=== PATIENT | female | born 1980 | race American Indian/Alaskan Native ===

== ENCOUNTER 2017-09-03 07:13 | Day surgery (SDC) | payer OTHER ==
[2016-07-06 08:39] VITALS: BMI 29.2
[2017-09-03] MEDS ORDERED: Propofol 10 mg/ml Inj (20 ML) ONE ×2 (11:44→12:29)
[2017-09-03] MEDS ORDERED: Midazolam 2 MG/2 ML VIAL ONE (11:44)
[2017-09-03] MEDS ORDERED: Rocuronium 10 mg/ml (5 ml) ONE (11:45)
[2017-09-03] MEDS ORDERED: Lidocaine/Epinephrine 1% 1:100000 10 ML IJ ONE (11:50)
[2017-09-03] MEDS ORDERED: Neostigmine Methylsulfate 3mg/3ml Syringe IV ONE (13:34)
[2017-09-03] MEDS: HYDROmorphone 0.5 mg/0.5 ml ISec IVP PRN ×2 (14:12→15:10)
--- NOTE | 2017-09-03 14:19 | PCM.SURG1 ---
Surgeon's Initial Post Op Note - Surgeon's Notes Surgeon: Anne Boyce MD [employer]: Kirill Lovell MD Type of Anesthesia: General Endo Pre-Operative Diagnosis: Abnormal uterine bleeding, Retrained intrauterine device, Multiparity desires permanent tubal sterilization Operative Findings: Retrained IUD removed under hyseroscopic guidance successfully, polypoid tissue noted within cavity, bilaterl ostial vislutize. Dx laparscopy with omental adhesions along supraumbilca and right lower quadnrant, adhesions carfeully lisyed x 1 hour howver procedure due to poor visulziaton and concenrs for underlying bowel or adhesions vs performing laparapatory. 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 Dr Giovana Lovell was surgical assistn and was present for entire case and essential in gainign etnry, retraction, epxoure holidn gcamera, helpign to lyse adhesions. Post-Operative Diagnosis: same as above Operation Performed: Operative laparascopy, lysis of adhesions, operative hysteroscopy, removal of retained intrauterine device, dilaton and currettage Specimen/Specimens Removed: endometrial currettings, retained intrauterien device Estimated Blood Loss: EBL {In ML}: 20 Blood Products Given: N/A Drains Used: No Drains Date of Surgery/Procedure: 09/03/17 Time of Surgery/Procedure: 13:00
[2017-09-03] MEDS ORDERED: Lactated Ringer's 1,000 ML IV ONE (16:00)
[2017-09-03 16:05] VITALS: BP 99/59
[2017-09-03 16:34] VITALS: PULSE 72; RESP 18; TEMP 97; O2SAT 100
--- NOTE | 2017-09-04 09:55 | OP ---
PROCEDURE DATE: 09/03/2017 SURGEON: Anne Boyce MD RCIS: Kirill Lovell MD TYPE OF ANESTHESIA: General endotracheal. PREOPERATIVE DIAGNOSES: Abnormal uterine bleeding, retained intrauterine device, multiparity, and desires permanent tubal sterilization. POSTOPERATIVE DIAGNOSES: Abnormal uterine bleeding, retained intrauterine device, multiparity, and desires permanent tubal sterilization. OPERATIVE FINDINGS: Retained intrauterine device removed under hysteroscopic guidance successfully, polypoid tissue noted within cavity. Bilateral ostia visualized. Diagnostic laparoscopy with omental adhesion along supraumbilical and right lower quadrant adhesions carefully lysed for one hour; however, the procedure avoided due to poor visualization and concerns for underlying bowel adhesions versus performing laparotomy versus injuring complications. Due to elective procedure bilateral salpingectomy, the patient with frozen type pelvis unable to visualize uterus with omentoplasty adherent over pelvic region as HUMI uterine manipulator was placed and unable to mobilize uterus. Dr. Kirill Lovell who was the surgical manager present for the entire case and essential for gaining entry, retraction, exposure, gaining laparoscopic entry, trying to help with lysis of adhesions, obtaining hemostasis, and closing all layers. OPERATION PERFORMED: Operative laparoscopy, lysis of adhesions, operative hysteroscopy, removal of retained intrauterine device, dilatation and curettage. SPECIMEN REMOVED: Endometrial curetting, retaining intrauterine device. ESTIMATED BLOOD LOSS: 20 mL. BLOOD PRODUCTS: None. COMPLICATIONS: None. DESCRIPTION OF PROCEDURE: The patient was taken to the operating room where she was given general anesthesia. Once found to be adequate, she was placed on the operating table in dorsal lithotomy position with legs supported using stirrups. The patient was then prepped and draped in the usual sterile fashion. Timeout confirmed correct patient and correct procedure. Bimanual exam was performed with the above-mentioned findings. A Gallardo catheter then was inserted into the urethra to drain the bladder. Following this, a Haas retractor was placed in the anterior and posterior fornix of the vagina. The cervix was adequately visualized and a tooth tenaculum was placed on the anterior lip of the cervix. There was no IUD strings visualized at the cervical os. Two separate IUD hooks were then used to help grasper to remove the IUD, but was unsuccessful. The uterus was carefully dilated to allow for introduction of 5 mm hysteroscope under direct visualization. The IUD was then identified with endometrial cavity with the strings visualized up anterior near the fundus, and IUD grasper was inserted directly under hysteroscopic guidance into the hysteroscopic port and was grabbed and removed carefully with hysteroscope. The IUD was then sent to pathology on Tel. The hysteroscope was then reintroduced. There was polypoid tissue type noted. The hysteroscope was removed and a gentle curettage was done with the polypoid tissue. Hysteroscope was then reinserted and everything appeared well. Following this, a HUMI-uterine manipulator was then inserted into the uterine cavity to help for uterine manipulation, and the patient was then repositioned and the legs supported using stirrups. The surgery re-gloved. Attention was then turned to the abdomen in which there was a prior abdominoplasty scar and also umbilical region which had keloid over supraumbilically, Marcaine 0.5 was then administered supraumbilically, and a 5 mm skin incision was made with the scalpel. The skin was then tented up. The Veress needle was then inserted and confirmation was placed after confirmation of the normal saline placed. There was normal opening pressure. The abdomen was then insufflated to 50 mmHg using CO2 gas. Following this, the Veress needle was then inserted and laparoscope was then inserted to 5 mm under direct visualization, and up on visualization, the laparoscope was noted to be protruding through omental territory. The laparoscope and port were then carefully dissected through omental adhesions in a clear spot where another right lower quadrant clear view was then visualized within this omental adhesion, and 0.5 Marcaine was then inserted and the right lower quadrant was then inserted under direct visualization. The probe was then inserted and the omental adhesions were attempted to be lysed through blunt dissection and also the 5 mm LigaSure device under careful . There was no free pockets on visualization of the complete pelvis and unable to visualize the lower pelvis or the left lower quadrant. Adhesions were carefully lysed and then there was bowel noted to be adherent to the anterior abdominal wall in which the procedure was then aborted due to concerns of risks of elective procedure versus needing exploratory laparotomy versus risks of complication. There was good hemostasis noted. There was a frozen pelvis noted throughout the pelvic cavity due to unable to manipulate the HUMI uterine device. All instruments removed including laparoscope. There was good hemostasis noted at all operative site. The skin was reapproximated and closed with 4-0 Monocryl in a running subcuticular fashion. At the end of the procedure, all needle, sponge, and instrument counts were noted to be correct x2. The patient tolerated the procedure well and was transferred to the recovery room in stable condition. The patient was then notified of the examination findings with either medical versus surgical management for future and denied any contraceptives prior to being discharged. The patient was advised not to be sexually active until postop follow visit. All questions were answered. Anne Boyce MD
== END 2017-09-03 17:32 | disposition home or self-care (01) ==
LOC: C.SDS 07:13
PROVIDERS: ATTEND Obstetrics & Gynecology
DX: Z30.2 Encounter for sterilization (principal); Z30.432 Encounter for removal of intrauterine contraceptive device; N73.6 Female pelvic peritoneal adhesions (postinfective); N93.9 Abnormal uterine and vaginal bleeding, unspecified; G43.909 Migraine, unspecified, not intractable, without status migrainosus
CPT/HCPCS: 49329; 58562; 88300; 88305; J1100; J1170; J2001; J2250; J2405; J2704; J2710; J3010; J7120